=== PATIENT | male | born 1960 | race Hispanic/Latino ===

== ENCOUNTER 2017-10-17 13:11 | Inpatient (IN) | payer MEDICARE ==
--- NOTE | 2017-10-17 14:28 | RAD ---
Date of service: 10/17/2017 HISTORY: Code Stroke COMPARISON: No prior. FINDINGS: LUNGS: No active pulmonary disease. PLEURA: No significant pleural effusion identified, no pneumothorax apparent. CARDIOVASCULAR: Normal. OSSEOUS STRUCTURES: No significant abnormalities. VISUALIZED UPPER ABDOMEN: Normal. OTHER FINDINGS: None. IMPRESSION: No active disease.
[2017-10-17] MEDS: Sodium Chloride 0.9% 1,000 ML IV SCH (14:37)
[2017-10-17 14:42] LABS: BASO # 0.06 K/mm3 (0.0-2.0); BASO % 0.6 % (0.0-3.0); EOS # 0.1 (0.0-0.7); EOS % 0.6 % (1.5-5.0); GRAN # 7.5 (1.4-6.5); GRAN % 79.8 % (50.0-68.0); HEMOGLOBIN 15.1 g/dL (14.0-18.0); LYMPH # 1.4 (1.2-3.4); LYMPH % 14.9 % (22.0-35.0); MEAN CELL VOLUME 84.1 fl (80.0-105.0); MEAN CORPUSCULAR HGB CONC 35.7 g/dl (31.0-37.0); MEAN PLATELET VOLUME 10.5 fl (7.0-11.0); MONO # 0.4 (0.1-0.6); MONO % 4.1 % (1.0-6.0); RBC 5.03 10^6/uL (3.5-6.1); RED CELL DISTRIBUTION WIDTH 13.7 % (11.5-14.5); WHITE BLOOD COUNT 9.4 10^3/ul (4.5-11.0)
--- NOTE | 2017-10-17 14:47 | ED PDOC ---
Arrival/HPI - General Chief Complaint: Weakness/Neurological Deficit Time Seen by Provider: 10/17/17 13:35 Historian: Patient, Family (cousin also provided information) - History of Present Illness Narrative History of Present Illness (Text): 10/17/17 13:35 56 year old male, with no significant past medical history, who presents to the emergency department complaining of difficulty walking for past 6 days and dizziness on standing up. Patient notes he believes it has worsened as the weather has become hotter. Patient states he has not been able to ambulate properly since onset, with associated stiffness, but denies pain. Patient notes he has had numbness in 1st, 2nd, and 3rd digits on left hand. Patient notes he is not a smoker, does not take any pain medication, has no history of seizures, with little to no occasional drinking. Patient denies any fevers, chills, chest pain, shortness of breath, abdominal pain, nausea, vomiting, diarrhea, back pain /injuries, neck pain, urinary symptoms, headache, numbness, or any other complaint. Patient notes he has not gone to a PMD in about 20 years. Time/Duration: > week (past 6 days) Symptom Course: Unchanged Quality: Other (stiff when ambulating) Activities at Onset: Light Past Medical History - Provider Review Nursing Documentation Reviewed: Yes - Cardiac Hx Cardiac Disorders: No - Pulmonary Hx Respiratory Disorders: No - Neurological Hx Neurological Disorder: Yes Other/Comment: ASPERGERS - HEENT Hx HEENT Disorder: No - Renal Hx Renal Disorder: No - Endocrine/Metabolic Hx Endocrine Disorders: No - Hematological/Oncological Hx Blood Disorders: No - Integumentary Hx Dermatological Disorder: No - Musculoskeletal/Rheumatological Hx Musculoskeletal Disorders: No - Gastrointestinal Hx Gastrointestinal Disorders: No - Genitourinary/Gynecological Hx Genitourinary Disorders: No - Psychiatric Hx Psychophysiologic Disorder: No Hx Substance Use: No Family/Social History - Physician Review Nursing Documentation Reviewed: Yes Family/Social History: No Known Family HX Smoking Status: Never Smoked Hx Alcohol Use: Yes Frequency of alcohol use: Socially Hx Substance Use: No Allergies/Home Meds Allergies/Adverse Reactions: Allergies No Known Allergies Allergy (Verified 10/17/17 18:07) Home Medications: Home Meds Medication Instructions Recorded Confirmed No Known Home Med 10/17/17 10/17/17 Review of Systems - Physician Review All systems were reviewed & negative as marked: Yes - Review of Systems Constitutional: Normal. absent: Fevers Eyes: Normal ENT: Normal Respiratory: Normal. absent: Cough Cardiovascular: Normal. absent: Chest Pain Gastrointestinal: Normal. absent: Abdominal Pain, Diarrhea, Nausea, Vomiting Genitourinary Male: Normal Musculoskeletal: Other (numbness to 1st, 2nd and 3rd digits on left hand since onset 6 days ago). absent: Normal, Back Pain, Neck Pain Skin: Normal. absent: Rash, Skin Lesions, Laceration Neurological: Dizziness (dizziness on standing up ), Gait Changes (difficulty walking since onset 6 days ago). absent: Normal, Headache Endocrine: Normal Hemo/Lymphatic: Normal Psychiatric: Normal Physical Exam Vital Signs Reviewed: Yes Vital Signs Temp Pulse Resp BP Pulse Ox 10/17/17 17:28 70 18 126/74 98 10/17/17 15:58 72 18 153/82 H 100 10/17/17 13:16 98.7 F 88 16 147/88 99 Temperature: Afebrile Blood Pressure: Normal Pulse: Regular Respiratory Rate: Normal Appearance: Positive for: Well-Appearing, Non-Toxic, Comfortable Pain Distress: None Mental Status: Positive for: Alert and Oriented X 3 - Systems Exam Head: Present: Atraumatic, Normocephalic Pupils: Present: PERRL Extroacular Muscles: Present: EOMI Conjunctiva: Present: Normal Mouth: Present: Moist Mucous Membranes Neck: Present: Normal Range of Motion Respiratory/Chest: Present: Clear to Auscultation, Good Air Exchange. No: Respiratory Distress, Accessory Muscle Use Cardiovascular: Present: Regular Rate and Rhythm, Normal S1, S2. No: Murmurs Abdomen: No: Tenderness, Distention, Peritoneal Signs Back: Present: Normal Inspection Upper Extremity: Present: Normal Inspection. No: Cyanosis, Edema Lower Extremity: Present: Other (ataxia with ambulation). No: Normal Inspection , Edema Neurological: Present: GCS=15, CN II-XII Intact, Speech Normal Skin: Present: Warm, Dry, Normal Color. No: Rashes Psychiatric: Present: Alert, Oriented x 3, Normal Insight, Normal Concentration Medical Decision Making ED Course and Treatment: 10/17/17 13:35 Impression: 56 year old male presents to the emergency department for difficulty walking and dizziness on standing up, since past 6 days. Differential Diagnosis included but are not limited to: r/o stroke, Electrolyte abnormalities Plan: -- Labs -- CT of head W/O (code stroke) -- EKG -- X-Ray of chest -- Glucose, POC routine -- IV fluids -- Reassess and disposition Progress Notes: Chest X-Ray reviewed by radiologist, shows: Dictator : Srinivasa Barth MD Report Date : 10/17/2017 14:26:55 IMPRESSION: No active disease. 10/17/17 15:10 EKG: NSR at [address] elevations, +motion artifact Potassium low at 2.9. Renal Insufficiency noted at 2.0. Treated patient with Potassium PO and IV. CT Head pending. CT of head reviewed by radiologist, shows: Dictator : Srinivasa Barth MD Report Date : 10/17/2017 15:29:40 IMPRESSION: No acute findings 10/17/2017 15:[address] IMPRESSION: No acute findings. Dictator: Srinivasa Goodman MD 10/17/17 18:07 Patient does not have an allergy to aspirin. He states he gets diarrhea only with aspirin. CT negative. Case discussed with Dr. Harris for Neurology. Case was discussed with the hospitalist who will admit to her service. Patient is comfortable in no acute distress. - Lab Interpretations Lab Results: 10/17/17 14:18 10/17/17 14:18 Lab Results 10/17/17 14:22: POC Glucose (mg/dL) 104 10/17/17 14:18: Magnesium 1.2 L 10/17/17 14:18: Sodium 140, Potassium 2.9 L*, Chloride 96 L, Carbon Dioxide 28, Anion Gap 18, BUN 21, Creatinine 2.0 H, Est GFR ( Amer) 42, Est GFR (Non- Af Amer) 35, Random Glucose 128 H, Calcium 9.8, Total Bilirubin 0.6, AST 39, ALT 30, Alkaline Phosphatase 80, Troponin I < 0.01, Total Protein 8.1, Albumin 5.0 H, Globulin 3.1, Albumin/Globulin Ratio 1.6, Triglycerides 113, Cholesterol 163, LDL Cholesterol Direct 66, HDL Cholesterol 65 H 10/17/17 14:18: PT 12.2, INR 1.07, APTT 31.9 10/17/17 14:18: WBC 9.4, RBC 5.03, Hgb 15.1, Hct 42.3, MCV 84.1, MCH 30.0, MCHC 35.7, RDW 13.7, Plt Count 221, MPV 10.5, Gran % 79.8 H, Lymph % (Auto) 14.9 L, [place] % (Auto) 4.1, Eos % (Auto) 0.6 L, Baso % (Auto) 0.6, Gran # 7.50 H, Lymph # (Auto) 1.4, [place] # (Auto) 0.4, Eos # (Auto) 0.1, Baso # (Auto) 0.06 - RAD Interpretation Radiology Orders: 10/17/17 14:07 HEAD W/O CONTRAST [CT] Stat CHEST PORTABLE [RAD] Stat Postal Worker: Radiologist - Medication Orders Current Medication Orders: Aspirin (Aspirin) 325 mg PO STAT STA Stop: 10/17/17 18:07 Sodium Chloride (Sodium Chloride 0.9%) 1,000 mls @ 100 mls/hr IV .Q10H [facility] Last Admin: 10/17/17 14:37 Dose: 100 mls/hr eMAR Start Stop Document 10/17/17 14:37 HI (Rec: 10/17/17 14:37 HI [id number]) Intravenous Solution Start Date 10/17/17 Start Time 14:37 Magnesium 2 gm/50 ml NS (Magnesium Sulfate 2 Gm/50 Ml Ns) 2 gm in 50 mls @ 50 mls/hr IVPB ONCE ONE Stop: 10/17/17 19:03 Discontinued Medications Potassium Chloride (Potassium Chloride 10 Meq/100 Ml) 10 meq in 100 mls @ 50 mls/hr IVPB ONCE ONE Stop: 10/17/17 16:57 Last Admin: 10/17/17 15:20 Dose: 50 mls/hr eMAR Start Stop Document 10/17/17 15:20 KRIS (Rec: 10/17/17 15:46 KRIS [id number]) Intravenous Solution Start Date 10/17/17 Start Time 15:20 End Date 10/17/17 End time 17:20 Total Infusion Time 120 Magnesium Oxide (Mag-Ox) 400 mg PO STAT STA Stop: 10/17/17 15:13 Last Admin: 10/17/17 15:20 Dose: 400 mg Potassium Chloride (K-Dur 20 Meq Er Tab) 40 meq PO STAT STA Stop: 10/17/17 14:55 Last Admin: 10/17/17 15:20 Dose: 40 meq Potassium Chloride (Potassium Chloride Oral Soln) 40 meq PO STAT STA Stop: 10/17/17 18:03 - Scribe Statement The provider has reviewed the documentation as recorded by the Scribe Sherry Mandel All medical record entries made by the Scribe were at my direction and personally dictated by me. I have reviewed the chart and agree that the record accurately reflects my personal performance of the history, physical exam, medical decision making, and the department course for this patient. I have also personally directed, reviewed, and agree with the discharge instructions and disposition. Disposition/Present on Arrival - Present on Arrival Any Indicators Present on Arrival: No History of DVT/PE: No History of Uncontrolled Diabetes: No Urinary Catheter: No History of Decub. Ulcer: No History Surgical Site Infection Following: None - Disposition Have Diagnosis and Disposition been Completed?: Yes Diagnosis: Ataxia, Hypokalemia Disposition Time: 16:03 Patient Plan: Admission, Observation Condition: FAIR
[2017-10-17 14:48] LABS: INR 1.07; PARTIAL THROMBOPLASTIN TIME 31.9 Seconds (25.1-36.5); PROTHROMBIN TIME 12.2 SECONDS (9.4-12.5)
[2017-10-17 14:51] LABS: ALB/GLOB RATIO 1.6 (1.1-1.8); ALT/SGPT 30 U/L (7-56); AST/SGOT 39 U/L (17-59); BLOOD UREA NITROGEN 21 mg/dL (7-21); CALCIUM 9.8 mg/dL (8.4-10.5); GFR AFRICAN-AMERICAN 42; GFR NON-AFRICAN AMERICAN 35; HDL CHOLESTEROL 65 mg/dL (29-60)
[2017-10-17] MEDS ORDERED: Potassium Chloride 20 mEq ER Tab PO STA (14:54)
[2017-10-17 14:57] LABS: LDL CHOLESTEROL 66 mg/dL (0-129)
[2017-10-17 15:01] LABS: TROPONIN I < 0.01 ng/mL
[2017-10-17] MEDS ORDERED: Magnesium Oxide 400 mg Tab UD PO STA (15:12)
--- NOTE | 2017-10-17 15:31 | CT ---
Date of service: 10/17/2017 PROCEDURE: CT HEAD WITHOUT CONTRAST. HISTORY: Code Stroke COMPARISON: None available. TECHNIQUE: Axial computed tomography images were obtained through the head/brain without intravenous contrast. Radiation dose: Total exam DLP = 921 mGy-cm. This CT exam was performed using one or more of the following dose reduction techniques: Automated exposure control, adjustment of the mA and/or kV according to patient size, and/or use of iterative reconstruction technique. FINDINGS: HEMORRHAGE: No intracranial hemorrhage. BRAIN: No mass effect or edema. No atrophy or chronic microvascular ischemic changes. VENTRICLES: Unremarkable. No hydrocephalus. CALVARIUM: Unremarkable. PARANASAL SINUSES: Unremarkable as visualized. No significant inflammatory changes. MASTOID AIR CELLS: Unremarkable as visualized. No inflammatory changes. Soft tissue densities are seen in the external auditory canals most likely due to cerumen OTHER FINDINGS: None. IMPRESSION: No acute findings
--- NOTE | 2017-10-17 17:50 | CP.PCM.HP ---
<Saul Ly - Last Filed: 10/17/17 20:42> History of Present Illness - History of Present Illness History of Present Illness: Saul Ly D.O PGY-1, H & P for Dr. Etienne CC: Difficulty walking HPI: 56 year old male with PMH of Asperger syndrome who presents to the emergency department complaining of difficulty walking for the past 6 days and dizziness on standing up. He states that he has not been able to ambulate properly since onset, with associated stiffness, but denies pain. He states that his symptoms are worse when he is outside or when the weather is hot and is better when he is inside his house where it is cooler. Also, patient notes he has had numbness in 1st, 2nd, and 3rd digits on left hand. Patient admits to having a poor diet. He eats mostly meats, potatoes, and drinks soda most of the time. Patient denies any fevers, chills, chest pain, shortness of breath, abdominal pain, nausea, vomiting, diarrhea, back pain/injuries, neck pain, or urinary symptoms. 12 point ROS negative except as indicated in HPI Past medical history: Asperger syndrome Surgical History: denies Allergies: NKDA Social History: Denies alcohol, tobacco, and drug use. Lives alone at home and unemployed. Family History: Mother of a heart attack at age 60 and father had a stroke at age 70. Medications: none PMD: none Present on Admission - Present on Admission Any Indicators Present on Admission: No History of DVT/PE: No History of Uncontrolled Diabetes: No Urinary Catheter: No Decubitus Ulcer Present: No Past Patient History - Past Social History Smoking Status: Never Smoked - CARDIAC Hx Cardiac Disorders: No - PULMONARY Hx Respiratory Disorders: No - NEUROLOGICAL Hx Neurological Disorder: Yes Other/Comment: ASPERGERS - HEENT Hx HEENT Problems: No - RENAL Hx Chronic Kidney Disease: No - ENDOCRINE/METABOLIC Hx Endocrine Disorders: No - HEMATOLOGICAL/ONCOLOGICAL Hx Blood Disorders: No - INTEGUMENTARY Hx Dermatological Problems: No - MUSCULOSKELETAL/RHEUMATOLOGICAL Hx Musculoskeletal Disorders: No - GASTROINTESTINAL Hx Gastrointestinal Disorders: No - GENITOURINARY/GYNECOLOGICAL Hx Genitourinary Disorders: No - PSYCHIATRIC Hx Psychophysiologic Disorder: No Hx Substance Use: No - SURGICAL HISTORY Hx Surgeries: No Meds Allergies/Adverse Reactions: Allergies Allergy/AdvReac Type Severity Reaction Status Date / Time No Known Allergies Allergy Verified 10/17/17 18:07 Physical Exam - Constitutional Appears: No Acute Distress - Head Exam Head Exam: ATRAUMATIC, NORMAL INSPECTION - Eye Exam Eye Exam: Normal appearance, PERRL - ENT Exam ENT Exam: Mucous Membranes Dry - Respiratory Exam Respiratory Exam: Clear to Auscultation Bilateral. absent: Rales, Rhonchi, Wheezes - Cardiovascular Exam Cardiovascular Exam: REGULAR RHYTHM, +S1, +S2. absent: Gallop, Rubs, Systolic Murmur - GI/Abdominal Exam GI & Abdominal Exam: Normal Bowel Sounds, Soft. absent: Tenderness - Extremities Exam Extremities exam: Positive for: pedal pulses present. Negative for: calf tenderness, joint swelling, pedal edema - Neurological Exam Neurological exam: Abnormal Gait, Alert, CN II-XII Intact, Oriented x3, Reflexes Normal Additional comments: muscle strength 5/5 and sensations intact in bilateral upper and lower extremities. Normal speech. No loss of visual leo. Positive Romberg test. - Psychiatric Exam Psychiatric exam: Normal Affect, Normal Mood - Skin Skin Exam: Dry, Intact, Warm Results - Vital Signs Recent Vital Signs: Last Vital Signs Temp 98.7 F 10/17/17 13:16 Pulse 70 10/17/17 17:28 Resp 18 10/17/17 17:28 BP 126/74 10/17/17 17:28 Pulse Ox 98 10/17/17 17:28 - Labs Result Diagrams: 10/17/17 14:18 10/17/17 14:18 Assessment & Plan - Assessment and Plan (Free Text) Assessment: 56 year old male with PMH of Asperger syndrome who presents to the emergency department complaining of difficulty walking for past 6 days and dizziness on standing up. Patient was also found to have a potassium of 2.9 on admission. Plan: Difficulty walking and dizziness - most likely secondary to electrolytes imbalance vs vitamin deficiencies - need to rule out CVA - Lipid panel, HbA1C ordered - Head CT: no acute findings - CXR: no active disease - Vitamin B12, Folate, and TSH levels ordered - Phosphate and magnesium levels ordered - PT/OT - Neurology consulted, Dr. Harris - Brain MRI without contrast ordered - Carotid duplex ordered - Orthostatic vitals ordered - Fall precautions JAKE - BUN/Cr elevated on admission- 21/2.0 - IVF: NS @ 100mls/hr - Renal ultrasound ordered Electrolyte abnormalities - Potassium was 2.9 and Magnesium was 1.2 on admission- repleted - Continue to monitor and replete as necessary - EKG: NSR at 73 bpm, NY shortening (NY interval: 100) DVT prophylaxis: SCD's Patient seen, case reviewed, and plan approved by attending physician, Dr. Etienne <Emily Etienne R - Last Filed: 10/18/17 16:24> Results - Vital Signs Recent Vital Signs: Last Vital Signs Temp 97.9 F 10/18/17 08:14 Pulse 62 10/18/17 08:42 Resp 20 10/18/17 08:14 BP 152/90 H 10/18/17 08:14 Pulse Ox 96 10/18/17 08:14 - Labs Result Diagrams: 10/18/17 05:30 10/18/17 05:30 Attending/Attestation - Attestation I have personally seen and examined this patient.: Yes I have fully participated in the care of the patient.: Yes I have reviewed all pertinent clinical information: Yes Notes (Text): Patient seen and examined by me at 4:15PM with resident 10/17/17. Case including HPI, physical exam, and assessment and plan discussed with resident. Agree with above with following additions/corrections. Patient is a 56-year-old male with past medical history significant for Asperger 's that presents to the emergency room with feeling "wobbly and shaking in legs " when trying to ambulate. Patient's cousin at bedside. History taken from both patient and patient's cousin with patient's permission. Patient states that this started over the weekend. He thinks that he may have been dehydrated. Patient has not been to a physician in approximately 20 years. He states that he eats very unhealthy. He eats a lot of pizza and burgers. Per patient's cousin , patient normally ambulates well and walks a lot. Patient denies any falls. Per patient's cousin, patient can barely walk. This has never happened before. Patient also complains of left thumb and left index finger numbness for the past few days. He states he feels lightheaded when he stands up too fast which has also been going on for the past few days. Patient states that he does not drink water but drinks a lot of soda at home. He also complains of constipation. Last bowel movement was today. States that his stool is "hard." Patient denies any headaches or dizziness. No chest pain or shortness of breath. No palpitations. No fevers or chills. No burning with urination or dysuria. No change in vision. No neck pain or back pain. States he is hard of hearing. Past medical history: Aspergers Past surgical history: Patient denies any surgeries Allergies: No known drug allergies Social history: Patient lives alone. Patient denies any alcohol or tobacco use. No illicit drug use. Family history: Mother at the age of 60 from heart attack. Father at the age of 82 and had a history of a stroke. Medications at home: Patient does not take any Physical exam: Gen: Awake and alert lying in bed in no acute distress HEENT: Normocephalic, atraumatic. Extraocular muscles intact, pupils equal reactive. No scleral icterus. Oropharynx is pink. Positive dry mucous membranes. Neck is supple. Hearing grossly decreased. Ears and nose externally unremarkable. Cardiovascular: Normal rhythm. Normal S1, S2. No mumurs, rubs, or gallops appreciated Pulmonary: Normal respiratory effort. No rhonchi, rales or wheezing appreciated. Gastrointestinal: Soft, nontender, nondistended, positive bowel sounds all 4 quadrants, no guarding. Musculoskeletal: Normal range of motion all extremities, no calf tenderness, no edema appreciated Central nervous system: AAO x 3. CN 2-12 grossly intact. 5 out of 5 muscle strength all extremities. Sensation intact. Handgrip intact Vascular: 2+ peripheral pulses upper and lower extremities Dermatologic: Skin warm and dry Assessment and plan: Patient is a 56-year-old male with past medical history significant for Asperger's that presents to the emergency room with feeling "wobbly and shaking in legs" when trying to ambulate. 1. Ataxic gait. Dizziness. Head CT per radiologist shows no acute findings. Neurology consulted, follow-up recommendations. We'll check orthostatics. Check carotid Dopplers and MRI brain. PT eval and treat. Fall precautions. Check B12, folic acid, TSH, HgbA1C. NIHSS 0, unlikely CVA. Given ASA in ED. 2. Hypokalemia. We'll replace with by mouth potassium. Patient received IV and by mouth potassium in the emergency room. Follow up repeat labs. 3. Hypomagnesemia. We'll give patient IV magnesium sulfate. Follow up repeat labs 4. Dehydration. We'll place on IV fluids 5. Elevated creatinine. Unsure of baseline. Place on IV fluids. Follow up renal ultrasound Case was discussed in detail with patient and patient's cousin at bedside regarding current diagnosis and treatment plan.
[2017-10-17] MEDS ORDERED: Potassium Chloride 40 mEq/30 ml LIQ UD PO STA (18:02)
[2017-10-17] MEDS ORDERED: Magnesium 2 gm/50 ml NS 2 GM/50 ML BAG IVPB ONE (18:04)
[2017-10-17] MEDS ORDERED: Aspirin 325 mg EC Tablets PO ONE (18:11)
[2017-10-17 20:01] LABS: CREATININE,RANDOM URINE 132 mg/dL
[2017-10-18 06:28] LABS: MEAN CELL VOLUME 85.2 fl (80.0-105.0); MEAN CORPUSCULAR HEMOGLOBIN 29.1 pg (25.0-35.0); MEAN CORPUSCULAR HGB CONC 34.1 g/dl (31.0-37.0); RBC 4.47 10^6/uL (3.5-6.1); RED CELL DISTRIBUTION WIDTH 13.9 % (11.5-14.5); WHITE BLOOD COUNT 6.8 10^3/ul (4.5-11.0)
[2017-10-18 06:59] LABS: ALB/GLOB RATIO 1.5 (1.1-1.8); ALBUMIN 4.1 g/dL (3.0-4.8); CALCIUM 8.8 mg/dL (8.4-10.5)
[2017-10-18] MEDS ORDERED: Potassium Chloride 20 mEq ER Tab PO STA ×2 (07:19→09:02)
[2017-10-18] MEDS ORDERED: Potassium & Sodium Phosphate PO ONE (07:21)
[2017-10-18 08:15] VITALS: RESP 20
--- NOTE | 2017-10-18 08:26 | CARD ---
APPROVED REPORT Date of service: 10/17/2017 EKG Measurement Heart [id number] <Conclusion> Sinus rhythm with short RI Nonspecific ST and T wave abnormality Abnormal ECG
[2017-10-18] MEDS ORDERED: Magnesium Sulfate 1 gm in D5W 1 GM/100 ML BAG IVPB ONE (09:02)
--- NOTE | 2017-10-18 09:42 | CP.PCM.CON ---
<Luis E Haynes - Last Filed: 10/18/17 12:29> History of Present Illness - History of Present Illness History of Present Illness: Luis E Haynes PGY2 Neurology Consult Note for Dr. Nam Mr. Lopez is a 56-year-old male with PMH of Asperger syndrome who presented to the ED complaining of difficulty walking with stiffness of bilateral knees, dizziness on standing up and intermittent numbness of digits 1-3 of the left hand. Patient states that he has not been eating well over the past few days, his diet mainly being pizza, chocolate cake and fast food. Of note the patient states that his father had similar symptoms as he aged, as well as his paternal grandmother. He states that he recalls his dad having weakness of the left side and progressive stiffness in the joints. Patient does not regularly go to a PMD, and does not take medications. NIHSS score was [address] had showed no acute findings. Labs were positive for hypokalemia, hypomagnesemia, and renal failure (unknown baseline Cr). The patient denied any chest pain, fevers/chills, shortness of breath, abdominal pain, nausea/vomiting, changes in hearing/seen, dizziness, urinary symptoms. 12 point ROS was reviewed and is otherwise unremarkable. PMD: None PMH: As above PSH: None Meds: None SHx: Denies alcohol, tobacco or drug use. Unemployed FHx: Father CVA at 70yo and progressive joint stiffness throughout his life; mother AK at 60yo Review of Systems - Review of Systems All systems: reviewed and no additional remarkable complaints except (as per HPI ) Past Patient History - Past Medical History & Family History Past Medical History?: Yes - Past Social History Smoking Status: Never Smoked Alcohol: None Drugs: Denies Home Situation {Lives}: Alone - CARDIAC Hx Cardiac Disorders: No - PULMONARY Hx Respiratory Disorders: No - NEUROLOGICAL Hx Neurological Disorder: Yes Other/Comment: ASPERGERS - HEENT Hx HEENT Problems: No - RENAL Hx Chronic Kidney Disease: No - ENDOCRINE/METABOLIC Hx Endocrine Disorders: No - HEMATOLOGICAL/ONCOLOGICAL Hx Blood Disorders: No - INTEGUMENTARY Hx Dermatological Problems: No - MUSCULOSKELETAL/RHEUMATOLOGICAL Hx Musculoskeletal Disorders: No - GASTROINTESTINAL Hx Gastrointestinal Disorders: No - GENITOURINARY/GYNECOLOGICAL Hx Genitourinary Disorders: No - PSYCHIATRIC Hx Psychophysiologic Disorder: No Hx Substance Use: No - SURGICAL HISTORY Hx Surgeries: No Meds Allergies/Adverse Reactions: Allergies Allergy/AdvReac Type Severity Reaction Status Date / Time No Known Allergies Allergy Verified 10/17/17 18:07 - Medications Medications: Current Medications Sodium Chloride (Sodium Chloride 0.9%) 1,000 mls @ 100 mls/hr IV .Q10H SHERITA Last Admin: 10/17/17 14:37 Dose: 100 mls/hr Magnesium Sulfate/Dextrose (Magnesium Sulfate 1 Gm/100 Ml D5w) 1 gm in 100 mls @ 100 mls/hr IVPB ONCE ONE Stop: 10/18/17 10:01 Potassium Chloride (Potassium Chloride 10 Meq/100 Ml) 10 meq in 100 mls @ 50 mls/hr IVPB Q2H SHERITA Stop: 10/18/17 13:14 Physical Exam - Constitutional Appears: Well, Non-toxic, No Acute Distress - Head Exam Head Exam: ATRAUMATIC - Eye Exam Eye Exam: EOMI, Normal appearance, PERRL - ENT Exam ENT Exam: Mucous Membranes Moist - Neck Exam Neck exam: Positive for: Normal Inspection - Respiratory Exam Respiratory Exam: NORMAL BREATHING PATTERN. absent: Rales, Rhonchi, Respiratory Distress - Cardiovascular Exam Cardiovascular Exam: RRR, +S1, +S2 - GI/Abdominal Exam GI & Abdominal Exam: Normal Bowel Sounds. absent: Distended, Tenderness - Extremities Exam Extremities exam: Positive for: full ROM, normal inspection - Back Exam Back exam: NORMAL INSPECTION - Neurological Exam Neurological exam: Abnormal Gait (wide based, magnetic gait), Alert, CN II-XII Intact, Oriented x3 Additional comments: + clonus LE rigidity noted b/l UE - Expanded Neurological Exam Expanded Neurological exam: Ataxia Cranial nerves: EOM's Intact: Normal Ataxia: Yes (wide based, magnetic gait) Sensory exam: Lower Extremity Light Touch: Normal, Upper Extremity Light Touch: Normal Neuro motor strength exam: Left Upper Extremity: 5, Right Upper Extremity: 4, Left Lower Extremity: 5, Right Lower Extremity: 4 DTR: Bicep Left: 3+, Bicep Right: 3+, Patellar Left: 3+, Patellar Right: 3+ - Psychiatric Exam Psychiatric exam: Normal Mood - Skin Skin Exam: Normal Color, Warm Results - Vital Signs Recent Vital Signs: Last Vital Signs Temp 97.9 F 10/18/17 08:14 Pulse 62 10/18/17 08:42 Resp 20 10/18/17 08:14 BP 152/90 H 10/18/17 08:14 Pulse Ox 96 10/18/17 08:14 - Labs Result Diagrams: 10/18/17 05:30 10/18/17 05:30 Labs: Laboratory Results - last 24 hr 10/17/17 10/18/17 10/18/17 18:50 05:30 05:30 WBC 6.8 D RBC 4.47 Hgb 13.0 L D Hct 38.1 L MCV 85.2 MCH 29.1 MCHC 34.1 RDW 13.9 Plt Count 174 MPV 10.0 Sodium Potassium Chloride Carbon Dioxide Anion Gap BUN Creatinine Est GFR ( Amer) Est GFR (Non-Af Amer) Random Glucose Calcium Phosphorus Magnesium Total Bilirubin AST ALT Alkaline Phosphatase Total Protein Albumin Globulin Albumin/Globulin Ratio TSH 3rd Generation 1.33 Ur Random Creatinine 132 Ur Random Sodium 50 Ur Random Urea Nitrogn 642 10/18/17 05:30 WBC RBC Hgb Hct MCV MCH MCHC RDW Plt Count MPV Sodium 140 Potassium 3.1 L Chloride 100 Carbon Dioxide 28 Anion Gap 15 BUN 22 H Creatinine 1.9 H Est GFR ( Amer) 44 Est GFR (Non-Af Amer) 37 Random Glucose 101 Calcium 8.8 Phosphorus 2.3 L Magnesium 1.7 Total Bilirubin 0.9 AST 28 ALT 29 Alkaline Phosphatase 64 Total Protein 6.7 Albumin 4.1 Globulin 2.6 Albumin/Globulin Ratio 1.5 TSH 3rd Generation Ur Random Creatinine Ur Random Sodium Ur Random Urea Nitrogn Assessment & Plan - Assessment and Plan (Free Text) Assessment: 56-year-old male with PMH of Asperger syndrome, progressive ataxia and hearing loss who presented to the ED complaining of difficulty walking with stiffness of bilateral knees, dizziness on standing up and intermittent numbness of digits 1-3 of the left hand. Labs significant for hypokalemia and hypomagnesemia , which are likely the cause due to malnutrition. CVA is ruled out. Renal failure is pre-renal considering FENa of 0.5%. Brain MRI shows an atrophied cerebellum. 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 Plan: Ataxia with numbness/tingling - Echo ordered to r/o cardiac involvement, if truly underlying muscular dystrophy disorder - replete magnesium and potassium as needed - monitor for other electrolyte changes - monitor U/O - TSH wnl - A1c is wnl, so non-diabetic - carotid/vertebral US done, pending official read - renal US done, pending official read - PT eval recommending TCU - moderate fall risk - patient should follow-up with Dr. Menjivar as outpatient following discharge for EMG studies - further recs per Dr. Nam Case was reviewed and discussed with attending, Dr. Steven Haynes PGY2 <Pilo Nam - Last Filed: 10/18/17 14:33> Meds - Medications Medications: Current Medications Sodium Chloride (Sodium Chloride 0.9%) 1,000 mls @ 100 mls/hr IV .Q10H SHERITA Last Admin: 10/17/17 14:37 Dose: 100 mls/hr Results - Vital Signs Recent Vital Signs: Last Vital Signs Temp 97.9 F 10/18/17 08:14 Pulse 62 10/18/17 08:42 Resp 20 10/18/17 08:14 BP 152/90 H 10/18/17 08:14 Pulse Ox 96 10/18/17 08:14 - Labs Result Diagrams: 10/18/17 05:30 10/18/17 05:30 Labs: Laboratory Results - last 24 hr 10/17/17 10/18/17 10/18/17 18:50 05:30 05:30 WBC 6.8 D RBC 4.47 Hgb 13.0 L D Hct 38.1 L MCV 85.2 MCH 29.1 MCHC 34.1 RDW 13.9 Plt Count 174 MPV 10.0 Sodium Potassium Chloride Carbon Dioxide Anion Gap BUN Creatinine Est GFR ( Amer) Est GFR (Non-Af Amer) Random Glucose Calcium Phosphorus Magnesium Total Bilirubin AST ALT Alkaline Phosphatase Total Protein Albumin Globulin Albumin/Globulin Ratio TSH 3rd Generation 1.33 Ur Random Creatinine 132 Ur Random Sodium 50 Ur Random Urea Nitrogn 642 10/18/17 05:30 WBC RBC Hgb Hct MCV MCH MCHC RDW Plt Count MPV Sodium 140 Potassium 3.1 L Chloride 100 Carbon Dioxide 28 Anion Gap 15 BUN 22 H Creatinine 1.9 H Est GFR ( Amer) 44 Est GFR (Non-Af Amer) 37 Random Glucose 101 Calcium 8.8 Phosphorus 2.3 L Magnesium 1.7 Total Bilirubin 0.9 AST 28 ALT 29 Alkaline Phosphatase 64 Total Protein 6.7 Albumin 4.1 Globulin 2.6 Albumin/Globulin Ratio 1.5 TSH 3rd Generation Ur Random Creatinine Ur Random Sodium Ur Random Urea Nitrogn Assessment & Plan - Assessment and Plan (Free Text) Plan: Neurology attending attestation: I have examined the patient with the residents and formulated the assessment and plan. Briefly, the patient has a progressive neuromuscular process with differential of cerebellar ataxia or myotonic dystrophy. He will benefit from EMG ncv, which will help us delineate this process. Otherwise, he will benefit from physical therapy. Thank you Dr. nam
--- NOTE | 2017-10-18 10:42 | MRI ---
Date of service: 10/18/2017 PROCEDURE: MRI BRAIN WITHOUT CONTRAST HISTORY: ataxic gait COMPARISON: None available. TECHNIQUE: Multiplanar, multisequence MR images of the brain were obtained without intravenous contrast enhancement. FINDINGS: HEMORRHAGE: None DWI: No evidence of an acute or early subacute infarction. BRAIN PARENCHYMA: No mass effect or edema. Minimal microvascular changes in the periventricular white matter. VENTRICLES: Unremarkable. No hydrocephalus. CRANIUM: Unremarkable. ORBITS: Grossly unremarkable. PARANASAL SINUSES/MASTOIDS: Clear VASCULAR SYSTEM: Skull base flow voids intact. OTHER FINDINGS: None. IMPRESSION: Unremarkable non contrast enhanced MRI of the brain.
--- NOTE | 2017-10-18 14:08 | CP.PCM.PN ---
<Estrada Banks - Last Filed: 10/18/17 15:30> Subjective - Date & Time of Evaluation Date of Evaluation: 10/18/17 Time of Evaluation: 06:20 - Subjective Subjective: Estrada Banks D.O PGY1 Internal Medicine Progress Note for Dr. Emily Etienne Patient seen and examined at bedside. No significant overnight events. Patient can move his lower legs freely, no stiffness, no swelling. Patient denied chest pain, fever, chills, SOB, headache, dizziness, palpitations. Objective - Vital Signs/Intake and Output Vital Signs (last 24 hours): Temp Pulse Resp BP Pulse Ox 97.9 F 62 20 152/90 H 96 10/18/17 08:14 10/18/17 08:42 10/18/17 08:14 10/18/17 08:14 10/18/17 08:14 Intake and Output: 10/18/17 10/18/17 06:59 18:59 Intake Total 1920 Balance 1920 - Medications Medications: Current Medications Sodium Chloride (Sodium Chloride 0.9%) 1,000 mls @ 100 mls/hr IV .Q10H SHERITA Last Admin: 10/17/17 14:37 Dose: 100 mls/hr - Labs Labs: 10/18/17 05:30 10/18/17 05:30 PT 12.2 SECONDS (9.4-12.5) 10/17/17 14:18 INR 1.07 10/17/17 14:18 APTT 31.9 Seconds (25.1-36.5) 10/17/17 14:18 - Constitutional Appears: Well, No Acute Distress - Head Exam Head Exam: ATRAUMATIC, NORMAL INSPECTION, NORMOCEPHALIC - Eye Exam Eye Exam: EOMI, Normal appearance, PERRL Pupil Exam: NORMAL ACCOMODATION, PERRL - ENT Exam ENT Exam: Mucous Membranes Moist, Normal Exam - Neck Exam Neck Exam: Full ROM, Normal Inspection. absent: Lymphadenopathy - Respiratory Exam Respiratory Exam: Clear to Ausculation Bilateral, NORMAL BREATHING PATTERN - Cardiovascular Exam Cardiovascular Exam: REGULAR RHYTHM, +S1, +S2. absent: Murmur - GI/Abdominal Exam GI & Abdominal Exam: Soft, Normal Bowel Sounds. absent: Tenderness - Extremities Exam Extremities Exam: Full ROM, Normal Capillary Refill, Normal Inspection. absent : Calf Tenderness, Joint Swelling, Pedal Edema, Tenderness Additional comments: both upper and lower extremities are cold to touch. - Back Exam Back Exam: NORMAL INSPECTION - Neurological Exam Neurological Exam: Alert, Awake, Oriented x3 Additional comments: ankle clonus b/l UL rigidity more peripheral than distal joints magnetic gait - Psychiatric Exam Psychiatric exam: Normal Affect, Normal Mood - Skin Skin Exam: Dry, Intact, Normal Color, Warm Assessment and Plan - Assessment and Plan (Free Text) Assessment: 56-year-old male with PMH of Asperger syndrome who presented to the ED with difficulty walking with stiffness of bilateral knees, dizziness on standing up and left hand numbness. He was founf to have low Mg and K levels. Plan: Ataxia with numbness/tingling - Chronic symptoms, patient had them for years, runs in family. Syptoms are progressive lately - Head CT: no acute findings - MRI brain: unremarkable - Carotid/vertebral US. read pending - CXR: no active disease results pending - PT/OT eval and treat - As per neurology consult Dr Harris; likely muscular dystrophy disorder, patient will follow-up with Dr. Menjivar as outpatient following discharge for EMG studies - Echo to access possib cardiac manifestions. - Kidney U/S. read pending - B12 and folate normal Electrolytes imbalance - Potassium 2.9, Magnesium 1.2 on admission, repleted - EKG: NSR @73 bpm, VT shortening - Today K 3.1, Mg 1.7 - Continue to monitor - IVF: NS @ 100mls/hr - BUN/Cr 21/2 Fall precautions DVT ppx SCD <Emily Etienne R - Last Filed: 10/19/17 12:18> Objective - Vital Signs/Intake and Output Vital Signs (last 24 hours): Temp Pulse Resp BP Pulse Ox 98.2 F 60 20 144/90 98 10/19/17 06:00 10/19/17 06:00 10/19/17 06:00 10/19/17 06:00 10/19/17 06:00 Intake and Output: 10/19/17 10/19/17 06:59 18:59 Intake Total 240 Output Total 500 Balance -260 - Medications Medications: Current Medications Sodium Chloride (Sodium Chloride 0.9%) 1,000 mls @ 100 mls/hr IV .Q10H SHERITA Last Admin: 10/18/17 21:00 Dose: 100 mls/hr Sodium Phosphate 30 mmole/ (Dextrose) 260 mls @ 42.5 mls/hr IVPB ONCE ONE Stop: 10/19/17 15:03 Last Admin: 10/19/17 10:03 Dose: 42.5 mls/hr - Labs Labs: 10/19/17 07:00 10/19/17 07:00 PT 12.2 SECONDS (9.4-12.5) 10/17/17 14:18 INR 1.07 10/17/17 14:18 APTT 31.9 Seconds (25.1-36.5) 10/17/17 14:18 Attending/Attestation - Attestation I have personally seen and examined this patient.: Yes I have fully participated in the care of the patient.: Yes I have reviewed all pertinent clinical information, including history, physical exam and plan: Yes Notes (Text): Patient seen and examined by me at 11:40AM with resident 10/18/17. Case including HPI, physical exam, and assessment and plan discussed with resident. Agree with above with following additions/corrections. Patient is a 56-year-old male with past medical history significant for Asperger 's that presents to the emergency room with feeling "wobbly and shaking in legs " when trying to ambulate. Patient states that he is feeling ok. Denies any weakness or stiffness in his legs while he is lying down. Denies any headaches or dizziness. No chest pain or shortness of breath. No palpitations. No fevers or chills. No burning with urination. No dysuria. No change in vision. No neck pain or back pain. States he is hard of hearing. Patient states hands and feet have been "cold for 20 years." Physical exam: Gen: Awake and alert lying in bed in no acute distress HEENT: Normocephalic, atraumatic. Extraocular muscles intact, pupils equal reactive. No scleral icterus. Oropharynx is pink. Positive dry mucous membranes. Neck is supple. Hearing grossly decreased. Ears and nose externally unremarkable. Cardiovascular: Normal rhythm. Normal S1, S2. No mumurs, rubs, or gallops appreciated Pulmonary: Normal respiratory effort. No rhonchi, rales or wheezing appreciated. Gastrointestinal: Soft, nontender, nondistended, positive bowel sounds all 4 quadrants, no guarding. Musculoskeletal: Normal range of motion all extremities, no calf tenderness, no edema appreciated Central nervous system: AAO x 3. CN 2-12 grossly intact. 5 out of 5 muscle strength all extremities. Sensation intact. Vascular: 2+ peripheral pulses upper and lower extremities Dermatologic: Skin warm and dry. Cold hands and feet. Assessment and plan: Patient is a 56-year-old male with past medical history significant for Asperger's that presents to the emergency room with feeling "wobbly and shaking in legs" when trying to ambulate. 1. Ataxic gait. Dizziness. Head CT per radiologist shows no acute findings. Neurology following, recommendations appreciated. Per neurology, may have muscular dystrophy disorder. Needs oupatient EMG with Dr. Menjivar. No CVA. MRI brain per radiologist showed unremarkable noncontrast MRI of brain. Carotid dopplers per radiologist showed bilateral 20-39% proximal left ICA stenosis. Lipid panel within normal limits. Hgb A1C 5.6. Physical therapy recommends rehab. Echo pending. 2. Hypokalemia. Improved. Will continue to replace. Follow up repeat labs in AM. 3. Hypomagnesemia. Improving. Will give one dose of IV magnesium sulfate. Follow up repeat labs in AM. 4. Dehydration. Improved. Continue IV fluids. 5. JAKE. Likely secondary to dehydration. Unsure of baseline. Slightly better today. Continue with IV fluids. Renal ultrasound per radiologist shows unremarkable renal ultrasound. Case was discussed in detail with patient and neurology team at bedside regarding current diagnosis and treatment plan.
--- NOTE | 2017-10-18 14:55 | US ---
Date of service: 10/18/2017 PROCEDURE: Ultrasound of the Kidneys HISTORY: JAKE COMPARISON: None available. TECHNIQUE: Sonogram of the kidneys. FINDINGS: RIGHT KIDNEY: Measures: 4.4 x 9.7 cm. Normal in size, contour and echogenicity. No stone, solid mass lesion or hydronephrosis visualized. LEFT KIDNEY: Measures: 4.3 x 10.3 cm. Normal in size, contour and echogenicity. No stone, solid mass lesion or hydronephrosis visualized. OTHER FINDINGS: None. IMPRESSION: Unremarkable renal sonogram.
--- NOTE | 2017-10-18 16:04 | US ---
PROCEDURE: Bilateral carotid artery duplex ultrasound HISTORY: Carotid stenosis dizziness PHYSICIAN(S): Randolph Loja MD. TECHNIQUE: Duplex sonography and color-flow Doppler were used to evaluate the carotid bifurcations and limited segments of the vertebral arteries bilaterally. FINDINGS: There is mild to moderate smooth heterogeneous plaque noted at the carotid bifurcations bilaterally. The peak systolic velocity in the proximal right internal carotid artery is 69 cm/sec. This corresponds to a 20 to 39% proximal right ICA stenosis. Normal systolic velocities are noted in the proximal right external carotid artery. There is antegrade flow in the right vertebral artery. The peak systolic velocity in the proximal left internal carotid artery is 84 cm/sec. This corresponds to a 20 to 39% proximal left ICA stenosis. Normal systolic velocities are noted in the proximal left external carotid artery. There is antegrade flow in the left vertebral artery. IMPRESSION: 1. Bilateral 20-39% proximal ICA stenoses. 2. Antegrade flow in both vertebral arteries.
[2017-10-18] MEDS: Sodium Chloride 0.9% 1,000 ML IV SCH (21:00)
[2017-10-19 07:36] LABS: MEAN CELL VOLUME 85.5 fl (80.0-105.0); MEAN CORPUSCULAR HEMOGLOBIN 29.4 pg (25.0-35.0); MEAN CORPUSCULAR HGB CONC 34.4 g/dl (31.0-37.0); MEAN PLATELET VOLUME 10.7 fl (7.0-11.0); RBC 4.76 10^6/uL (3.5-6.1); RED CELL DISTRIBUTION WIDTH 13.9 % (11.5-14.5); WHITE BLOOD COUNT 6.5 10^3/ul (4.5-11.0)
[2017-10-19 07:54] LABS: ALB/GLOB RATIO 1.5 (1.1-1.8)
[2017-10-19] MEDS ORDERED: Potassium Chloride 20 mEq ER Tab PO STA (08:55)
[2017-10-19] MEDS ORDERED: Magnesium Sulfate 2 gm/50 ml 2 GM/50 ML BAG IVPB ONE (08:56)
[2017-10-19] MEDS ORDERED: Sodium Phosphate 30 MMOLE in Dextrose 5% In Water 250 ML IVPB ONE (08:56)
--- NOTE | 2017-10-19 12:51 | CP.PCM.PN ---
<Estrada Banks - Last Filed: 10/19/17 13:13> Subjective - Date & Time of Evaluation Date of Evaluation: 10/19/17 Time of Evaluation: 08:05 - Subjective Subjective: Estrada Banks D.O PGY1 Internal Medicine Progress Note for Dr. Phillips Patient seen and examined at bedside. No significant overnight events. Patient can freely move his lower legs, no stiffness, no swelling. He is feeling better in regards to keeping his balance during walking. Patient denied chest pain, fever, chills, SOB, headache, dizziness, palpitations. Patient wants to be discharged. Objective - Vital Signs/Intake and Output Vital Signs (last 24 hours): Temp Pulse Resp BP Pulse Ox 98.2 F 60 20 144/90 98 10/19/17 06:00 10/19/17 06:00 10/19/17 06:00 10/19/17 06:00 10/19/17 06:00 Intake and Output: 10/19/17 10/19/17 06:59 18:59 Intake Total 240 Output Total 500 Balance -260 - Medications Medications: Current Medications Sodium Chloride (Sodium Chloride 0.9%) 1,000 mls @ 100 mls/hr IV .Q10H SHERITA Last Admin: 10/18/17 21:00 Dose: 100 mls/hr Sodium Phosphate 30 mmole/ (Dextrose) 260 mls @ 42.5 mls/hr IVPB ONCE ONE Stop: 10/19/17 15:03 Last Admin: 10/19/17 10:03 Dose: 42.5 mls/hr - Labs Labs: 10/19/17 07:00 10/19/17 07:00 PT 12.2 SECONDS (9.4-12.5) 10/17/17 14:18 INR 1.07 10/17/17 14:18 APTT 31.9 Seconds (25.1-36.5) 10/17/17 14:18 - Constitutional Appears: Well, No Acute Distress - Head Exam Head Exam: ATRAUMATIC, NORMAL INSPECTION, NORMOCEPHALIC - Eye Exam Eye Exam: EOMI, Normal appearance, PERRL Pupil Exam: NORMAL ACCOMODATION, PERRL - ENT Exam ENT Exam: Mucous Membranes Moist, Normal Exam - Neck Exam Neck Exam: Full ROM, Normal Inspection. absent: Lymphadenopathy - Respiratory Exam Respiratory Exam: Clear to Ausculation Bilateral, NORMAL BREATHING PATTERN - Cardiovascular Exam Cardiovascular Exam: REGULAR RHYTHM, +S1, +S2. absent: Murmur - GI/Abdominal Exam GI & Abdominal Exam: Soft, Normal Bowel Sounds. absent: Tenderness - Back Exam Back Exam: NORMAL INSPECTION - Neurological Exam Neurological Exam: Abnormal Gait (magnetic gait), Alert, Awake, CN II-XII Intact , Normal Gait, Oriented x3. absent: Motor Sensory Deficit Additional comments: brisk reflexes, upper and lower limbs b/l ankle clonus b/l UL rigidity more peripheral than distal joints magnetic gait - Psychiatric Exam Psychiatric exam: Normal Affect, Normal Mood - Skin Skin Exam: Dry, Intact, Normal Color, Warm Assessment and Plan - Assessment and Plan (Free Text) Assessment: 56-year-old male with PMH of Asperger syndrome who presented to the ED with difficulty walking with stiffness of bilateral knees, dizziness on standing up and left hand numbness. Upon admission, he was found to have low Mg and K levels , which were repleted. Plan: Ataxia with numbness/tingling - Chronic symptoms, patient had them for years, runs in family. Syptoms are progressive lately - Head CT: no acute findings - MRI brain: cerebellar atrophy - Carotid/vertebral US: bilateral 20-39% proximal ICA stenosis. Antegrade flow inn both vertebral arteries - CXR: no active disease - PT: recommended that patient may benefit from outpatient PT service. He may use a cane or a walker for his cerebellar attaxia. - As per neurology consult Dr Harris; likely muscular dystrophy disorder, patient will follow-up with Dr. Menjivar as outpatient following discharge for EMG studies - Echo to access possible cardiac manifestations related to muscle dystrophy. read pending - Kidney U/S. normal - B12 and folate normal Electrolytes imbalance - Potassium 2.9, Magnesium 1.2 on admission. Today, K 3.4, Mg 1.6, Phos 2.2 continue to replenish. - EKG: NSR @73 bpm, SD shortening - Continue to monitor - IVF: NS @ 100mls/hr - BUN/Cr 21/1.7 - Patient to be discharged after adjusting electrolytes. Fall precautions DVT ppx SCD Case reviewed and discussed with Diya Phillips <Alvin Phillips - Last Filed: 10/20/17 18:30> Objective - Vital Signs/Intake and Output Vital Signs (last 24 hours): Temp Pulse Resp BP Pulse Ox 97.7 F 58 L 20 135/86 98 10/20/17 06:00 10/20/17 06:00 10/20/17 06:00 10/20/17 06:00 10/20/17 06:00 Intake and Output: 10/20/17 10/20/17 06:59 18:59 Intake Total 1120 Output Total 1100 Balance 20 - Labs Labs: 10/20/17 07:00 10/20/17 07:00 PT 12.2 SECONDS (9.4-12.5) 10/17/17 14:18 INR 1.07 10/17/17 14:18 APTT 31.9 Seconds (25.1-36.5) 10/17/17 14:18 Attending/Attestation - Attestation I have personally seen and examined this patient.: Yes I have fully participated in the care of the patient.: Yes I have reviewed all pertinent clinical information, including history, physical exam and plan: Yes Notes (Text): 10/20/17 18:29 Attending note; Patient seen and examined with resident. Patient is a 56-year-old male with past medical history significant for Asperger's that presents to the emergency room with feeling "wobbly and shaking in legs" when trying to ambulate. 1. Ataxic gait. Dizziness. Head CT is negative. Neurology evaluation appreciated. PT evaluation appreciated. Currently patient is walking with cane. Neurology recommendations appreciated. Per neurology, may have muscular dystrophy disorder. Needs oupatient EMG with Dr. Menjivar. No CVA. MRI brain per radiologist showed unremarkable noncontrast MRI of brain. Carotid dopplers per radiologist showed bilateral 20-39% proximal left ICA stenosis. Lipid panel within normal limits. Hgb A1C 5.6. Physical therapy recommends rehab. Echo normal. 2. Hypokalemia. Improved. Continue by mouth supplementation. 3. Hypomagnesemia. Improving. Continue IV supplementation. 4. Dehydration. Improved. Continue IV fluids. 5. JAKE. Likely secondary to dehydration. Possibly prerenal. Creatinine is improving. Continue with IV fluids. Renal ultrasound per radiologist shows unremarkable renal ultrasound. Case was discussed in detail with patient and neurology team at bedside regarding current diagnosis and treatment plan.
--- NOTE | 2017-10-19 22:43 | CARD ---
APPROVED REPORT Date of service: 10/19/2017 EXAM: Two-dimensional and M-mode echocardiogram with Doppler and color Doppler. INDICATION R/O ABN IN LIGHT OF POSSIBLE MYOTONIC DYSTROPHY 2D DIMENSIONS Left Atrium (2D)3.5 (1.6-4.0cm)IVSd1.0 (0.7-1.1cm) LVDd3.8 (3.9-5.9cm)PWd1.2 (0.7-1.1cm) LVDs2.6 (2.5-4.0cm)FS (%) 31.0 % LVEF (%)59.4 (>50%) M-Mode DIMENSIONS Aortic Root3.50 (2.2-3.7cm)Aortic Cusp Exc.2.10 (1.5-2.0cm) Aortic Valve AoV Peak Xabzstxg887.0cm/Yamilet Peak GR.5mmHg Mitral Valve MV E Dhsyynex661.0cm/sMV A Nlbesmlh09.8cm/sE/A ratio1.1 TDI Lateral E' Peak V13.00cm/sMedial E' Peak V14.20cm/sE/Lateral E'7.8 E/Medial E'7.2 Tricuspid Valve TR Peak Fmwoghlh431qi/sRAP [id number] Peak Gr.24mmHg [id number] LEFT VENTRICLE The left ventricle is normal size. There is normal left ventricular wall thickness. The left ventricular function is normal.EF-55-60% There is normal LV segmental wall motion. The left ventricular diastolic function is normal. No left ventricle thrombus noted on this study. There is no ventricular septal defect visualized. There is no left ventricular aneurysm. There is no mass noted in the left ventricle. RIGHT VENTRICLE The right ventricle is normal size. There is normal right ventricular wall thickness. The right ventricular systolic function is normal. ATRIA The left atrium size is normal. The right atrium size is normal. The interatrial septum is intact with no evidence for an atrial septal defect. AORTIC VALVE The aortic valve is thickened but opens well. No aortic regurgitation is present. There is no aortic valvular stenosis. There is no aortic valvular vegetation. MITRAL VALVE The mitral valve is thickened but opens well. Mitral annular calcification is mild. Mitral regurgitation is trace. There is no mitral valve stenosis. There is no evidence of mitral valve prolapse. TRICUSPID VALVE The tricuspid valve leaflets are thickened , but open well. There is trace to mild tricuspid regurgitation.RVSP-35 mmof Hg. There is no tricuspid valve stenosis. There is no tricuspid valve prolapse or vegetation. PULMONIC VALVE The pulmonary valve is normal in structure. There is no pulmonic valvular regurgitation. There is no pulmonic valvular stenosis. GREAT VESSELS The aortic root is normal in size. The ascending aorta is normal in size. The pulmonary artery is normal. The IVC is normal in size and collapses >50% with inspiration. PERICARDIAL EFFUSION There is no pleural effusion. There is no pericardial effusion. <Conclusion> Normal Chamber Size. EF-55-60% Mitral regurgitation is trace. There is trace to mild tricuspid regurgitation.RVSP-35 mmof Hg. The IVC is normal in size and collapses >50% with inspiration. There is no pericardial effusion. No vegetation or thrombus noted.
[2017-10-20] MEDS: Sodium Chloride 0.9% 1,000 ML IV SCH ×3 (07:50→12:57)
[2017-10-20 08:08] LABS: HEMOGLOBIN 13.4 g/dL (14.0-18.0); MEAN CELL VOLUME 86.4 fl (80.0-105.0); MEAN CORPUSCULAR HEMOGLOBIN 29.5 pg (25.0-35.0); MEAN CORPUSCULAR HGB CONC 34.1 g/dl (31.0-37.0); MEAN PLATELET VOLUME 10.6 fl (7.0-11.0); RBC 4.55 10^6/uL (3.5-6.1); RED CELL DISTRIBUTION WIDTH 14.1 % (11.5-14.5); WHITE BLOOD COUNT 6.5 10^3/ul (4.5-11.0)
[2017-10-20 08:42] VITALS: BP 135/86; PULSE 58; TEMP 97.7; O2SAT 98
[2017-10-20 08:46] LABS: ALB/GLOB RATIO 1.4 (1.1-1.8); ALBUMIN 3.7 g/dL (3.0-4.8); CALCIUM 8.9 mg/dL (8.4-10.5)
[2017-10-20] MEDS ORDERED: Potassium Chloride 20 mEq ER Tab PO STA (08:47)
[2017-10-20] MEDS ORDERED: Magnesium 2 gm/50 ml NS 2 GM/50 ML BAG IVPB ONE (08:47)
--- NOTE | 2017-10-20 10:05 | CP.PCM.DIS ---
<Estrada Banks - Last Filed: 10/20/17 12:08> Provider - Provider Date of Admission: 10/18/17 14:44 Attending physician: Alvin Phillips MD Consults: neuro Dr Harris Time Spent in preparation of Discharge (in minutes): 45 Hospital Course - Lab Results Lab Results: Most Recent Lab Values WBC 6.5 10^3/ul (4.5-11.0) 10/20/17 07:00 RBC 4.55 10^6/uL (3.5-6.1) 10/20/17 07:00 Hgb 13.4 g/dL (14.0-18.0) L 10/20/17 07:00 Hct 39.3 % (42.0-52.0) L 10/20/17 07:00 MCV 86.4 fl (80.0-105.0) 10/20/17 07:00 MCH 29.5 pg (25.0-35.0) 10/20/17 07:00 MCHC 34.1 g/dl (31.0-37.0) 10/20/17 07:00 RDW 14.1 % (11.5-14.5) 10/20/17 07:00 Plt Count 171 10^3/uL (120.0-450.0) 10/20/17 07:00 MPV 10.6 fl (7.0-11.0) 10/20/17 07:00 Gran % 79.8 % (50.0-68.0) H 10/17/17 14:18 Lymph % (Auto) 14.9 % (22.0-35.0) L 10/17/17 14:18 [place] % (Auto) 4.1 % (1.0-6.0) 10/17/17 14:18 Eos % (Auto) 0.6 % (1.5-5.0) L 10/17/17 14:18 Baso % (Auto) 0.6 % (0.0-3.0) 10/17/17 14:18 Gran # 7.50 (1.4-6.5) H 10/17/17 14:18 Lymph # (Auto) 1.4 (1.2-3.4) 10/17/17 14:18 [place] # (Auto) 0.4 (0.1-0.6) 10/17/17 14:18 Eos # (Auto) 0.1 (0.0-0.7) 10/17/17 14:18 Baso # (Auto) 0.06 K/mm3 (0.0-2.0) 10/17/17 14:18 PT 12.2 SECONDS (9.4-12.5) 10/17/17 14:18 INR 1.07 10/17/17 14:18 APTT 31.9 Seconds (25.1-36.5) 10/17/17 14:18 Sodium 138 mmol/L (132-148) 10/20/17 07:00 Potassium 3.3 mmol/L (3.6-5.0) L 10/20/17 07:00 Chloride 100 mmol/L (98-107) 10/20/17 07:00 Carbon Dioxide 28 mmol/L (21-33) 10/20/17 07:00 Anion Gap 13 (10-20) 10/20/17 07:00 BUN 17 mg/dL (7-21) 10/20/17 07:00 Creatinine 1.6 mg/dl (0.8-1.5) H 10/20/17 07:00 Est GFR ( Amer) 54 10/20/17 07:00 Est GFR (Non-Af Amer) 45 10/20/17 07:00 POC Glucose (mg/dL) 104 mg/dL (65-110) 10/17/17 14:22 Random Glucose 97 mg/dL (70-110) 10/20/17 07:00 Hemoglobin A1c 5.6 % (4.2-6.5) 10/17/17 14:18 Calcium 8.9 mg/dL (8.4-10.5) 10/20/17 07:00 Phosphorus 2.7 mg/dL (2.5-4.5) 10/20/17 07:00 Magnesium 1.6 mg/dL (1.7-2.2) L 10/20/17 07:00 Total Bilirubin 0.8 mg/dL (0.2-1.3) 10/20/17 07:00 AST 28 U/L (17-59) 10/20/17 07:00 ALT 28 U/L (7-56) 10/20/17 07:00 Alkaline Phosphatase 54 U/L (38-126) 10/20/17 07:00 Troponin I < 0.01 ng/mL 10/17/17 14:18 Total Protein 6.3 g/dL (5.8-8.3) 10/20/17 07:00 Albumin 3.7 g/dL (3.0-4.8) 10/20/17 07:00 Globulin 2.6 gm/dL 10/20/17 07:00 Albumin/Globulin Ratio 1.4 (1.1-1.8) 10/20/17 07:00 Triglycerides 113 mg/dL (35-160) 10/17/17 14:18 Cholesterol 163 mg/dL (130-200) 10/17/17 14:18 LDL Cholesterol Direct 66 mg/dL (0-129) 10/17/17 14:18 HDL Cholesterol 65 mg/dL (29-60) H 10/17/17 14:18 Vitamin B12 420 pg/mL (239-931) 10/17/17 14:18 Folate 7.0 ng/mL 10/17/17 14:18 TSH 3rd Generation 1.33 mIU/mL (0.46-4.68) 10/18/17 05:30 Ur Random Creatinine 132 mg/dL 10/17/17 18:50 Ur Random Sodium 50 meq/L 10/17/17 18:50 Ur Random Urea Nitrogn 642 mg/dL 10/17/17 18:50 - Hospital Course Hospital Course: On admission: 56 year old male with PMH of Asperger syndrome who presents to the emergency department complaining of difficulty walking for the past 6 days and dizziness on standing up. Patient was found to have low potassium and magnesium levels. Hospital course: Patient admitted to medical floor for ataxia with numbness/tingling. Chronic symptoms, patient had them for years, runs in family. Syptoms are progressive lately. Head CT showed no acute findings. MRI brain showed cerebellar atrophy. Carotid/vertebral US: bilateral 20-39% proximal ICA stenosis. Antegrade flow inn both vertebral arteries. CXR showed no active disease.Physical therapy recommended that patient may benefit from outpatient PT service. He may use a cane or a walker for his cerebellar ataxia. As per neurology consult Dr Harris, it' s likely muscular dystrophy disorder, patient will follow-up with Dr. Menjivar as outpatient following discharge for EMG studies. Echo was done to access possible cardiac manifestations related to muscle dystrophy, result was normal. Kidney U/S was normal. B12 and folate levels were normal. Potassium 2.9, Magnesium 1.2 on admission, electrolytes replenish. EKG: NSR @73 bpm, NE shortening. Patient was under cardiac monitoring but no abnormalities recorded. Patient is feeling more stable today, his gait is back to his normal, no imbalance noted during exam. We recommended to use cane or walker to help ambulate. Electrolytes were replenished, vitals are stable. Patient was ready to discharge Upon Discharge: Patient was advised to stablish a PMD to foloow up in 7 days from discharge. Patient's cousin will help him find a near by doctor. Patient to follow up with neurologist Dr Menjivar for possible EMG study and better manage his neurological symptoms Patient to take potassium and magnesium as prescribed Patient was consulted to follow a healthy diet If symptoms reoccur, return to nearest emergency department Discharge planning was conducted with patient including outpatient follow up, medication reconciliation, and signs and symptoms to be aware of for return to emergency department. Patient was in understanding and able to recall instructions back to primary team. Patient was deemed to be medically optimized for discharge by consultants involved in her care as well as her primary medical team. For further details regarding hospital stay please refer to full chart. - Date & Time of H&P Date of H&P: 10/20/17 Time of H&P: 11:52 Discharge Exam - Head Exam Head Exam: ATRAUMATIC, NORMAL INSPECTION, NORMOCEPHALIC - Eye Exam Eye Exam: EOMI, PERRL Pupil Exam: NORMAL ACCOMODATION - ENT Exam ENT Exam: Mucous Membranes Moist, Normal Exam - Neck Exam Neck exam: Full Rom, Normal Inspection - Respiratory Exam Respiratory Exam: Clear to PA & Lateral, NORMAL BREATHING PATTERN - Cardiovascular Exam Cardiovascular Exam: REGULAR RHYTHM, +S1, +S2 - GI/Abdominal Exam GI & Abdominal Exam: Normal Bowel Sounds, Soft - Rectal Exam Rectal Exam: Deferred - Extremities Exam Extremities exam: full ROM, normal capillary refill Additional comments: both hands and feet are cool to touch peripheral pulse palpable b/l no erythema, cyanosis - Neurological Exam Neurological exam: Alert, CN II-XII Intact, Oriented x3, Reflexes Normal Additional comments: magnetic gait - Psychiatric Exam Psychiatric exam: Normal Affect, Normal Mood - Skin Skin Exam: Dry, Intact, Normal Color, Warm Discharge Plan - Discharge Medications Prescriptions: Magnesium Oxide [Mag-Oxide Magnesium] 400 mg PO 5XD #14 tablet Potassium Chloride [K-Dur 20 mEq ER Tab] 40 meq PO DAILY #5 tab - Follow Up Plan Condition: FAIR Disposition: HOME/ ROUTINE Instructions: Hypokalemia (DC), Low Magnesium Level (DC) Additional Instructions: Call your insurance to find a primary care physician in network for follow up care. If you experience any worsening of pain, fever, chills, nausea/vomiting or chest pain contact your doctor or come back to the emergency room. Referrals: PCP,NO [Family Provider] - <Alvin Phillips - Last Filed: 10/20/17 18:32> Provider - Provider Date of Admission: 10/18/17 14:44 Attending physician: Alvin Phillips MD Hospital Course - Lab Results Lab Results: Most Recent Lab Values WBC 6.5 10^3/ul (4.5-11.0) 10/20/17 07:00 RBC 4.55 10^6/uL (3.5-6.1) 10/20/17 07:00 Hgb 13.4 g/dL (14.0-18.0) L 10/20/17 07:00 Hct 39.3 % (42.0-52.0) L 10/20/17 07:00 MCV 86.4 fl (80.0-105.0) 10/20/17 07:00 MCH 29.5 pg (25.0-35.0) 10/20/17 07:00 MCHC 34.1 g/dl (31.0-37.0) 10/20/17 07:00 RDW 14.1 % (11.5-14.5) 10/20/17 07:00 Plt Count 171 10^3/uL (120.0-450.0) 10/20/17 07:00 MPV 10.6 fl (7.0-11.0) 10/20/17 07:00 Gran % 79.8 % (50.0-68.0) H 10/17/17 14:18 Lymph % (Auto) 14.9 % (22.0-35.0) L 10/17/17 14:18 [place] % (Auto) 4.1 % (1.0-6.0) 10/17/17 14:18 Eos % (Auto) 0.6 % (1.5-5.0) L 10/17/17 14:18 Baso % (Auto) 0.6 % (0.0-3.0) 10/17/17 14:18 Gran # 7.50 (1.4-6.5) H 10/17/17 14:18 Lymph # (Auto) 1.4 (1.2-3.4) 10/17/17 14:18 [place] # (Auto) 0.4 (0.1-0.6) 10/17/17 14:18 Eos # (Auto) 0.1 (0.0-0.7) 10/17/17 14:18 Baso # (Auto) 0.06 K/mm3 (0.0-2.0) 10/17/17 14:18 PT 12.2 SECONDS (9.4-12.5) 10/17/17 14:18 INR 1.07 10/17/17 14:18 APTT 31.9 Seconds (25.1-36.5) 10/17/17 14:18 Sodium 138 mmol/L (132-148) 10/20/17 07:00 Potassium 3.3 mmol/L (3.6-5.0) L 10/20/17 07:00 Chloride 100 mmol/L (98-107) 10/20/17 07:00 Carbon Dioxide 28 mmol/L (21-33) 10/20/17 07:00 Anion Gap 13 (10-20) 10/20/17 07:00 BUN 17 mg/dL (7-21) 10/20/17 07:00 Creatinine 1.6 mg/dl (0.8-1.5) H 10/20/17 07:00 Est GFR ( Amer) 54 10/20/17 07:00 Est GFR (Non-Af Amer) 45 10/20/17 07:00 POC Glucose (mg/dL) 104 mg/dL (65-110) 10/17/17 14:22 Random Glucose 97 mg/dL (70-110) 10/20/17 07:00 Hemoglobin A1c 5.6 % (4.2-6.5) 10/17/17 14:18 Calcium 8.9 mg/dL (8.4-10.5) 10/20/17 07:00 Phosphorus 2.7 mg/dL (2.5-4.5) 10/20/17 07:00 Magnesium 1.6 mg/dL (1.7-2.2) L 10/20/17 07:00 Total Bilirubin 0.8 mg/dL (0.2-1.3) 10/20/17 07:00 AST 28 U/L (17-59) 10/20/17 07:00 ALT 28 U/L (7-56) 10/20/17 07:00 Alkaline Phosphatase 54 U/L (38-126) 10/20/17 07:00 Troponin I < 0.01 ng/mL 10/17/17 14:18 Total Protein 6.3 g/dL (5.8-8.3) 10/20/17 07:00 Albumin 3.7 g/dL (3.0-4.8) 10/20/17 07:00 Globulin 2.6 gm/dL 10/20/17 07:00 Albumin/Globulin Ratio 1.4 (1.1-1.8) 10/20/17 07:00 Triglycerides 113 mg/dL (35-160) 10/17/17 14:18 Cholesterol 163 mg/dL (130-200) 10/17/17 14:18 LDL Cholesterol Direct 66 mg/dL (0-129) 10/17/17 14:18 HDL Cholesterol 65 mg/dL (29-60) H 10/17/17 14:18 Vitamin B12 420 pg/mL (239-931) 10/17/17 14:18 Folate 7.0 ng/mL 10/17/17 14:18 TSH 3rd Generation 1.33 mIU/mL (0.46-4.68) 10/18/17 05:30 Ur Random Creatinine 132 mg/dL 10/17/17 18:50 Ur Random Sodium 50 meq/L 10/17/17 18:50 Ur Random Urea Nitrogn 642 mg/dL 10/17/17 18:50 Attending/Attestation - Attestation I have personally seen and examined this patient.: Yes I have fully participated in the care of the patient.: Yes I have reviewed all pertinent clinical information, including history, physical exam and plan: Yes Notes (Text): 10/20/17 18:31 Attending note; Patient seen and examined with resident. Patient is a 56-year-old male with past medical history significant for Asperger's that presents to the emergency room with feeling "wobbly and shaking in legs" when trying to ambulate. 1. Ataxic gait; improved. Head CT is negative. Neurology evaluation appreciated. PT evaluation appreciated. Currently patient is walking with cane. Outpatient physical therapy prescription given. Neurology recommendations appreciated. Per neurology, may have muscular dystrophy disorder. Needs oupatient EMG with Dr. Menjivar. No CVA. MRI brain per radiologist showed unremarkable noncontrast MRI of brain. Carotid dopplers per radiologist showed bilateral 20-39% proximal left ICA stenosis. Lipid panel within normal limits. Hgb A1C 5.6. Physical therapy recommends rehab. Echo normal. 2. Hypokalemia. Improved. 3. Hypomagnesemia. Improving. Continue IV supplementation. 4. Dehydration. Improved. Continue IV fluids. 5. JAKE. Likely secondary to dehydration. Possibly prerenal. Creatinine is improving. Continue with IV fluids. Renal ultrasound per radiologist shows unremarkable renal ultrasound. Patient will follow up with PMD of choice.
== END 2017-10-20 15:19 | disposition home or self-care (01) | DRG 92 ==
LOC: ED 13:11 → ERH 16:03 → 3RNO 18:25 → OBSVTOIN 10-18 14:44
PROVIDERS: ADMIT Hospitalist; ATTEND Internal Medicine
DX: R26.0 Ataxic gait (principal); N17.9 Acute kidney failure, unspecified; F84.5 Asperger's syndrome; E46 Unspecified protein-calorie malnutrition; G71.0 Muscular dystrophy; E87.6 Hypokalemia; E86.0 Dehydration; I65.23 Occlusion and stenosis of bilateral carotid arteries; E83.42 Hypomagnesemia; R26.2 Difficulty in walking, not elsewhere classified; Z68.22 Body mass index [BMI] 22.0-22.9, adult; Z82.3 Family history of stroke; Z82.49 Family history of ischemic heart disease and other diseases of the circulatory system